=== PATIENT | female | born 1965 | race American Indian/Alaskan Native ===

== ENCOUNTER 2018-12-20 00:53 | Emergency (ER) | payer BC ==
[2018-12-20] MEDS ORDERED: TYLENOL PO STA (01:08)
[2018-12-20] MEDS ORDERED: NACL 0.9% 500 ML 500 ML IV ONE (01:08)
--- NOTE | 2018-12-20 01:53 | XRay Report ---
PROCEDURE: XR CHEST 1V AP TECHNIQUE: Chest radiograph single view. HISTORY: possible Sepsis COMPARISONS: None . FINDINGS: Heart: Normal. Mediastinum/Vessels: Normal. Lungs/Pleural space: Normal. Bony thorax: No acute osseous abnormality. Life support devices: None. IMPRESSION: No acute cardiopulmonary abnormality. This document is electronically signed by Lokesh Chacon MD., December 20 2018 01:51:24 AM ET
[2018-12-20 01:55] LABS: Basophils % (Auto) 0.1 % (0.0-1.8); Hematocrit 37.3 % (30.3-42.9); Hemoglobin 12.8 gm/dl (10.1-14.3); Lymphocytes # (Auto) 0.5 K/mm3 (1.2-5.4); Lymphocytes % (Auto) 5.9 % (13.4-35.0); Mean Corpuscular HGB Conc 34 % (30-34); Mean Corpuscular Volume 87 fl (79-97); Monocytes % (Auto) 10.8 % (0.0-7.3); Platelet Count 267 K/mm3 (140-440); Red Blood Count 4.27 M/mm3 (3.65-5.03); Red Cell Distribution Width 13.3 % (13.2-15.2)
[2018-12-20 02:05] LABS: INR 1.18 (0.87-1.13)
--- NOTE | 2018-12-20 02:06 | Emergency Department Report ---
ED General Adult HPI - General Chief complaint: Abdominal Pain Stated complaint: VOMITING, AND ABDOMINAL PAIN Time Seen by Provider: 12/20/18 02:05 Source: patient Mode of arrival: Ambulatory Limitations: No Limitations - History of Present Illness Initial comments: 53-year-old female with no past medical history presents complaining of abdominal pain. Patient states his abdominal pain since Tuesday. Patient also complains of a fever. Patient states he went to an urgent care yesterday and was treated for the flu and was given Tamiflu therapy as well as ibuprofen therapy. Patient states she has continued to have some lower abdominal pain as well as a headachepresented here. Patient denies any dysuria. Patient denies any hematuria. Patient denies any cough. Patient states she's had known diarrhea. Severity scale (0 -10): 10 - Related Data Previous Rx's Medication Instructions Recorded Last Taken Type Ciprofloxacin HCl [Ciprofloxacin 500 mg PO Q12HR 7 Days #14 tab 12/20/18 Unknown Rx TAB] traMADol [Ultram] 50 mg PO Q6HR PRN #20 tablet 12/20/18 Unknown Rx Allergies Allergy/AdvReac Type Severity Reaction Status Date / Time No Known Allergies Allergy Verified 12/20/18 01:08 ED Review of Systems ROS: Stated complaint: VOMITING, AND ABDOMINAL PAIN Other details as noted in HPI Constitutional: denies: chills, fever Eyes: denies: eye pain, eye discharge, vision change ENT: denies: ear pain, throat pain Respiratory: denies: cough, shortness of breath, wheezing Cardiovascular: denies: chest pain, palpitations Endocrine: no symptoms reported Gastrointestinal: abdominal pain, nausea, vomiting Genitourinary: denies: urgency, dysuria, discharge Musculoskeletal: denies: back pain, joint swelling, arthralgia Skin: denies: rash, lesions Neurological: denies: headache, weakness, paresthesias Psychiatric: denies: anxiety, depression Hematological/Lymphatic: denies: easy bleeding, easy bruising ED Past Medical Hx - Past Medical History Previous Medical History?: No - Surgical History Past Surgical History?: No - Social History Smoking Status: Never Smoker Substance Use Type: None - Medications Home Medications: Home Medications Medication Instructions Recorded Confirmed Last Taken Type Ciprofloxacin HCl [Ciprofloxacin 500 mg PO Q12HR 7 Days #14 tab 12/20/18 Unknown Rx TAB] traMADol [Ultram] 50 mg PO Q6HR PRN #20 tablet 12/20/18 Unknown Rx ED Physical Exam - General Limitations: No Limitations General appearance: alert, other (mildly uncomfortable; dehydrated) - Head Head exam: Present: atraumatic, normocephalic - Eye Eye exam: Present: normal appearance - ENT ENT exam: Present: mucous membranes dry - Neck Neck exam: Present: normal inspection - Respiratory Respiratory exam: Present: normal lung sounds bilaterally. Absent: respiratory distress - Cardiovascular Cardiovascular Exam: Present: regular rate, normal rhythm. Absent: systolic murmur, diastolic murmur, rubs, gallop - GI/Abdominal GI/Abdominal exam: Present: soft, tenderness (noted in the suprapubic region), normal bowel sounds - Extremities Exam Extremities exam: Present: normal inspection - Back Exam Back exam: Present: normal inspection - Neurological Exam Neurological exam: Present: alert, oriented X3 - Psychiatric Psychiatric exam: Present: normal affect, normal mood - Skin Skin exam: Present: warm, dry, intact, normal color. Absent: rash ED Course Vital Signs 12/20/18 12/20/18 12/20/18 01:04 01:45 01:46 Temperature 101.7 F H 100 F H Pulse Rate 122 H 111 H Respiratory 18 32 H Rate Blood Pressure 141/88 143/89 O2 Sat by Pulse 97 97 Oximetry 12/20/18 12/20/18 12/20/18 02:00 02:15 02:30 Temperature Pulse Rate 105 H 107 H 100 H Respiratory 17 21 17 Rate Blood Pressure 146/78 111/62 113/57 O2 Sat by Pulse 97 96 Oximetry 12/20/18 12/20/18 12/20/18 04:00 04:16 04:30 Temperature Pulse Rate 94 H 95 H 92 H Respiratory 18 19 17 Rate Blood Pressure O2 Sat by Pulse 97 98 99 Oximetry 12/20/18 04:48 Temperature Pulse Rate Respiratory Rate Blood Pressure O2 Sat by Pulse 98 Oximetry ED Medical Decision Making - Lab Data Result diagrams: 12/20/18 01:41 12/20/18 01:41 - EKG Data EKG shows normal: sinus rhythm Rate: tachycardia - EKG Data When compared to previous EKG there are: no significant change Interpretation: no acute changes - Medical Decision Making Patient noted to have a CT this shows findings indicative of pyelonephritis. This correlates with the patient's urinalysis showing multiple W BCs as well. Patient given ceftriaxone therapy IV. Patient currently improved with administration of IV fluids as well. Patient has no elevated white count on her CBC either. Patient able to tolerate liquid and thus will be discharged with ciprofloxacin therapy taking Ultram therapy for when necessary pain relief. - Differential Diagnosis viral illness; dehydration; UTI; Critical care attestation.: If time is entered above; I have spent that time in minutes in the direct care of this critically ill patient, excluding procedure time. ED Disposition Clinical Impression: Pyelonephritis Disposition: TO HOME OR SELFCARE Is pt being admited?: No Condition: Stable Instructions: Abdominal Pain (ED) Prescriptions: Ciprofloxacin HCl [Ciprofloxacin TAB] 500 mg PO Q12HR 7 Days #14 tab traMADol [Ultram] 50 mg PO Q6HR PRN #20 tablet PRN Reason: Pain Referrals: EDY CLARKE MD [Staff Physician] - 3-5 Days Time of Disposition: 05:37 Print Language: TANZANIAN
[2018-12-20 02:18] LABS: Alanine Aminotransferase 93 units/L (7-56); Albumin 3.5 g/dL (3.9-5); BUN/Creatinine Ratio 14; Blood Urea Nitrogen 15 mg/dL (7-17); Calcium 9.4 mg/dL (8.4-10.2); Hemolysis Index 16
[2018-12-20] MEDS ORDERED: NACL 0.9% 1000 ML 1,000 ML IV ONE ×2 (02:21→04:36)
[2018-12-20] MEDS ORDERED: MORPHINE IV ONE (02:22)
[2018-12-20] MEDS ORDERED: ZOFRAN IV ONE (02:22)
--- NOTE | 2018-12-20 03:10 | Cat Scan Report ---
PROCEDURE: CT ABDOMEN PELVIS WO CON HISTORY: Upper abdominal pain. Technique: Axial images were acquired from the lung bases through the ischial tuberosities without co ntrast. Coronal and sagittal reconstructed images were acquired. Absent IV contrast precludes adequate evaluation of viscera and vessels, including lymph nodes. PRIORS: None Available Findings: Lower Thorax: Lungs: Bibasilar atelectasis without focal consolidation or pleural effusion. No pneumothorax. Atherosclerosis: Atherosclerotic changes in the aorta and coronary arteries. Pericardial effusion: Trace pericardial effusion. Abdomen: Liver: No calcification or adjacent inflammatory change. Mild enlargement and decreased attenuation. Gallbladder: Distended with bile, no adjacent inflammatory change. Pancreas: No focal abnormality or adjacent inflammatory change. Adrenals: Usual non-contrast appearance. Spleen: Usual non-contrast appearance. Kidneys: No discrete cortical lesion noted. No hydronephrosis. Suggested left renal adjacent inflamm atory change. Pelvis: Ureters: Not dilated. Bowel: Non-obstructive pattern. Mesenteric lymph nodes: Scattered, prominent mesenteric lymph nodes. Bladder: Distended with urine. Bones: No acute osseous abnormality. Multilevel vertebral endplate degenerative changes. IMPRESSION: 1. Mild stranding which appears centered about the left kidney, consider pyelonephritis in the approp riate clinical setting. There is no obstructive uropathy. 2. Mild hepatic steatosis and hepatomegaly. 3. Trace pericardial effusion. This document is electronically signed by Rubens Mahoney DO., December 20 2018 03:08:11 AM ET
[2018-12-20 05:01] VITALS: BP 113/57
[2018-12-20 05:13] LABS: Bacteria,Urine 2+ /HPF (Negative); Bilirubin,Urine NEG (Negative); Blood,Urine MOD (Negative); Color,Urine Amber (Yellow); Hyaline Casts,Urine 1 /LPF; Mucus,Urine 1+ /HPF
[2018-12-20] MEDS ORDERED: ROCEPHIN/NS 1 GM/50 ML 1 GM/50 ML BAG IV ONE (05:21)
== END 2018-12-20 07:04 | disposition home or self-care (01) ==
LOC: ED 00:53
DX: N12 Tubulo-interstitial nephritis, not specified as acute or chronic (principal); R11.2 Nausea with vomiting, unspecified
CPT/HCPCS: 36415; 71045; 74176; 80053; 81001; 82140; 82805; 85025; 85610; 87040; 87086; 93005; 93010; 96361; 96365; 96375; 99285; J0696; J2270; J2405; J7030

== ENCOUNTER 2022-02-25 14:16 | Emergency (ER) | payer BC ==
[2022-02-25 15:47] VITALS: BP 180/81
[2022-02-25 16:43] LABS: Bilirubin,Urine NEG (Negative); Blood,Urine SM (Negative); Color,Urine Straw (Yellow); Protein,Urine <15 mg/dL mg/dL (Negative); Urobilinogen,Urine < 2.0 mg/dL (<2.0)
[2022-02-25 16:50] LABS: Mucus,Urine FEW /HPF
[2022-02-25 17:16] LABS: WBC,Urine < 1.0 /HPF (0.0-6.0)
== END 2022-02-26 04:49 ==
LOC: ED 14:16
DX: M54.50 Low back pain, unspecified (principal); Z53.21 Procedure and treatment not carried out due to patient leaving prior to being seen by health care provider
CPT/HCPCS: 81001